=== PATIENT | female | born 1955 | race American Indian/Alaskan Native ===

== ENCOUNTER 2021-04-01 09:11 | Emergency (ER) | payer MEDICARE, OTHER ==
[2021-04-01] MEDS ORDERED: ACETAMINOPHEN 500 MG TAB PO ONE (10:27)
[2021-04-01] MEDS ORDERED: KETOROLAC 30 MG/1 ML INJ IM ONE (10:27)
--- NOTE | 2021-04-01 10:28 | Emergency Department Report ---
ED General Adult HPI - General Chief complaint: Extremity Injury, Lower Stated complaint: HIP/LEG PAIN PUI?: No Time Seen by Provider: 04/01/21 09:32 Source: patient, EMS ( EMS documentation not available at time of chart dictation ), RN notes reviewed Mode of arrival: Ambulatory Limitations: No Limitations - History of Present Illness Initial comments: The patient was evaluated in the emergency department for symptoms described in the history of present illness. He/she was evaluated in the context of the global COVID-19 pandemic, which necessitated consideration that the patient might be at risk for infection with the virus that causes COVID-19. Institutional protocols and algorithms that pertain to the evaluation of patients at risk for COVID-19 are in a state of rapid change based on information released by regulatory bodies including the CDC and federal and state organizations. These policies and algorithms were followed during the patient's care in the emergency department. Please note that these policies, procedures and recommendations changed on a rapid basis. Primary CARE doctor: [facility] Past medical history: Permanently disabled, secondary to DJD, diabetes, hypertension The patient is a 65-year-old female, who is not known to myself previously, who presents to the ER today with a complaint of nontraumatic right lower extremity radicular pain. She describes lancinating lightninglike pain that starts at the proximal right hip, and moves down the anterior and lateral aspect of her right lower extremity. She denies weakness. She denies bladder/bowel retention incontinence. She denies abdominal pain. She denies IV drug use and fevers. She reports that she has not participated in physical therapy or rehabilitation as of this time. She denies new/different back pain. Previously, she has had radicular pain, which was treated with spinal injections. However, she has not seen a pain specialist or physical therapist in quite some time. Secondary to COVID-19 pandemic, she reports that she is performing essentially telemedicine evaluations with her provider. -: Gradual, days(s) Location: right, lower extremity Radiation: extremity Quality: other (Per history of present illness) Consistency: intermittent Improves with: medication, rest Worsens with: movement - Related Data Previous Rx's Medication Instructions Recorded Last Taken Type Acetaminophen [Non-Aspirin Extra 500 mg PO Q6HR PRN #30 tablet 04/01/21 Unknown Rx Strength] Ibuprofen [Motrin] 600 mg PO Q8H PRN #30 tablet 04/01/21 Unknown Rx Allergies Allergy/AdvReac Type Severity Reaction Status Date / Time citalopram [From Celexa] Allergy Hives Verified 04/01/21 09:17 erythromycin base Allergy Hives Verified 04/01/21 09:17 Penicillins Allergy Hives Verified 04/01/21 09:16 ED Review of Systems ROS: Stated complaint: HIP/LEG PAIN Other details as noted in HPI Constitutional: denies: fever Eyes: denies: eye discharge ENT: denies: epistaxis Respiratory: denies: cough Cardiovascular: denies: chest pain Gastrointestinal: denies: abdominal pain Musculoskeletal: back pain Neurological: numbness, paresthesias. denies: weakness Psychiatric: anxiety Hematological/Lymphatic: denies: easy bleeding ED Past Medical Hx - Past Medical History Previous Medical History?: Yes Hx Hypertension: Yes Hx Diabetes: Yes - Surgical History Additional Surgical History: BILATERAL HIP REPLACEMENT. RIGHT KNEE REPLACEMENT - Medications Home Medications: Home Medications Medication Instructions Recorded Confirmed Last Taken Type Acetaminophen [Non-Aspirin Extra 500 mg PO Q6HR PRN #30 tablet 04/01/21 Unknown Rx Strength] Ibuprofen [Motrin] 600 mg PO Q8H PRN #30 tablet 04/01/21 Unknown Rx ED Physical Exam - General Limitations: No Limitations General appearance: alert, in no apparent distress, obese - Head Head exam: Present: atraumatic, normocephalic - Eye Eye exam: Present: normal appearance, EOMI. Absent: nystagmus - ENT ENT exam: Present: normal exam, normal orophraynx, mucous membranes moist, normal external ear exam - Neck Neck exam: Present: normal inspection, full ROM. Absent: tenderness, meningismus - Respiratory Respiratory exam: Present: normal lung sounds bilaterally. Absent: respiratory distress, wheezes, rales, rhonchi, stridor, decreased breath sounds - Cardiovascular Cardiovascular Exam: Present: regular rate, normal rhythm, normal heart sounds. Absent: bradycardia, tachycardia, irregular rhythm, systolic murmur, diastolic murmur, rubs, gallop - GI/Abdominal GI/Abdominal exam: Present: soft. Absent: distended, tenderness, guarding, rebound, rigid, pulsatile mass - Extremities Exam Extremities exam: Present: normal inspection, full ROM, other (2+ pulses noted in the bilateral upper and lower extremities. There is no palpable cord. negative Homans sign. Muscular compartments are soft. The pelvis is stable.). Absent: pedal edema, calf tenderness - Back Exam Back exam: Present: normal inspection, full ROM, paraspinal tenderness. Absent: tenderness, CVA tenderness (R), CVA tenderness (L), muscle spasm, vertebral tenderness - Neurological Exam Neurological exam: Present: alert, oriented X3, reflexes normal (Downgoing plantar reflexes bilaterally. Sensation is intact to light touch and p roprioception in the bilateral lower and upper extremities. 2+ biceps, triceps and quadriceps reflexes bilaterally), other (No facial droop. Tongue midline. Extraocular movements intact bilaterally. Facial sensation intact to light touch in V1, V2, V3 distribution bilaterally. 5 and a 5 strength in 4 extremities. Sensation intact to light touch in 4 extremities.). Absent: motor sensory deficit - Psychiatric Psychiatric exam: Present: anxious - Skin Skin exam: Present: warm, dry, intact, normal color. Absent: rash ED Course Vital Signs 04/01/21 09:16 Temperature 98.1 F Pulse Rate 89 Respiratory 16 Rate Blood Pressure 198/94 [Right] O2 Sat by Pulse 98 Oximetry ED Medical Decision Making - Lab Data Vital Signs 04/01/21 09:16 Temperature 98.1 F Pulse Rate 89 Respiratory 16 Rate Blood Pressure 198/94 [Right] O2 Sat by Pulse 98 Oximetry - Medical Decision Making Differential diagnosis, including but not limited to: Lumbar radiculopathy, DJD, body mass index of 38.6, chronic hypertension Assessment and plan: 65-year-old female, who is afebrile with reassuring vital signs with exception of chronic hypertension and elevated blood pressure (please reference the [employer] clinical policy on asymptomatic hypertension), with no pulsatile abdominal mass, no demonstrable ne urologic or vascular deficits, who is likely presenting with an exacerbation of her known DJD disc disease, with a probable lumbar radiculopathy. Extensive discussion had with patient regarding natural history of lumbar radiculopathy. I recommended aggressive weight loss, physical therapy, and outpatient follow- up. She can also follow-up with her primary care doctor for her body mass index of 38.6 and chronic hypertension. Return precautions reviewed. All questions answered. Critical care attestation.: If time is entered above; I have spent that time in minutes in the direct care of this critically ill patient, excluding procedure time. ED Disposition Clinical Impression: Lumbar radiculopathy, Elevated blood pressure reading, Body mass index between 30-39, adult Disposition: 01 HOME / SELF CARE / HOMELESS Is pt being admited?: No Does the pt Need Aspirin: No Condition: Good Instructions: Radicular Pain, Obesity, Adult, [id number] Additional Instructions: As we discussed, symptoms likely coming from sciatica/lumbar radiculopathy. First-line treatments will include aggressive weight loss, physical therapy, follow-up with outpatient primary care/pain specialist and/or precision agriculture specialist. Dr. [facility] are a local spine group. [facility] is a local medical clinic. Symptoms will likely take weeks or months to completely improved. Patient is also found to have elevated blood pressure while here in the emergency room today. The patient should remain on her outpatient blood pressure medications. Please be aware that long-term complications of elevated blood pressure include stroke, heart attack, disability, paralysis, loss of quality of life. Please return to the emergency room right away with new pain, worsened pain, migration of pain, projectile vomiting, change in mental status, confusion, inability tolerate liquid feeds, new, worsened or different symptoms not present on the initial emergency room evaluation Please return to the emergency room right away with extremity weakness, bladder or bowel retention, incontinence, saddle anesthesia, severe abdominal pain, severe back pain. Referrals: [facility] [Provider Group] - 3-5 Days [facility] [Provider Group] - 3-5 Days
[2021-04-01 13:08] VITALS: BP 194/101
== END 2021-04-01 13:09 | disposition home or self-care (01) ==
LOC: ED 09:11
DX: M54.16 Radiculopathy, lumbar region (principal); I10 Essential (primary) hypertension; Z68.38 Body mass index [BMI] 38.0-38.9, adult; Z88.8 Allergy status to other drugs, medicaments and biological substances; Z88.1 Allergy status to other antibiotic agents; Z88.0 Allergy status to penicillin; E11.9 Type 2 diabetes mellitus without complications
CPT/HCPCS: 96372; 99283; J1885